=== PATIENT | female | born 1940 | race Two or more races ===

== ENCOUNTER → 2024-10-29 | Outpatient (CLI) | payer MEDICARE, SELFPAY ==
--- NOTE | 2024-10-29 | XR_ITS ---
EXAMINATION: Ankle, left 2 views Technique: Ankle AP, lateral 2 views Date and time of exam: October 29, 2024 1321 hours INDICATIONS: Twisting injury to the ankle 7 days ago, ankle pain. FINDINGS: Severe osteopenia No acute fracture No foreign body IMPRESSION: No acute fracture
== END | disposition home or self-care (01) ==
PROVIDERS: PCP Nurse Practitioner Family; Referring Provider Nurse Practitioner Family; Visit Provider Nurse Practitioner Family
DX: S99.912A Unspecified injury of left ankle, initial encounter (principal); X50.1XXA Overexertion from prolonged static or awkward postures, initial encounter
CPT/HCPCS: 73600

== ENCOUNTER → 2025-04-15 | Outpatient (CLI) | payer MEDICARE, SELFPAY ==
[2025-04-15 08:42] LABS: Basophils % (Auto) 0 % (0-2.5); Eosinophils % (Auto) 1 % (0-10); Hematocrit 33.5 % (36.0-46.0); Hemoglobin 10.5 g/dL (12.0-16.0); Immature Granulocytes % (Auto) 2 % (0-0); Immature Granulocytes Auto 0.17 Thou/mm3 (0.00-0.00); Lymphocytes # (Auto) 3.5 Thou/mm3 (1.0-4.8); Lymphocytes % (Auto) 39 % (10-50); Mean Corpuscular HGB Conc 31.3 g/dl (31.0-37.0); Mean Corpuscular Hemoglobin 31.2 pg (25.0-35.0); Mean Corpuscular Volume 99 fL (80-100); Monocytes # (Auto) 0.6 Thou/mm3 (0.0-0.8); Monocytes % (Auto) 7 % (0-12); Neutrophils # (Auto) 4.6 Thou/mm3 (1.8-7.7); Neutrophils % (Auto) 51 % (37-80); Nucleated Red Blood Cell % 0 /100 WBC (0); Platelet Count 176 Thou/mm3 (140-440); RDW Standard Deviation 47.8 fL (36.4-46.3); Red Blood Count 3.37 Miln/mm3 (4.00-5.20); White Blood Count 8.9 Thou/mm3 (3.6-11.0)
[2025-04-15 08:46] LABS: Glucose Estimated Average 120 mg/dL (80-131); Hemoglobin A1C 5.8 % Hgb (4.8-6.0)
[2025-04-15 09:06] LABS: Ferritin 58 ng/mL (7.3-270.7); Iron 43 mcg/dL (50-170); Total Iron Binding Capacity 277 mcg/dL (250-425)
[2025-04-15 09:08] LABS: Alanine Aminotransferase 17 U/L (10-49); Albumin, Serum 3.8 gm/dL (3.4-4.8); Albumin/Globulin Ratio 1.8 (1.2-2.2); Alkaline Phosphatase 105 U/L (46-116); Anion Gap 8 (7-16); Aspartate Amino Transferase 29 U/L (0-34); BUN/Creatinine Ratio 18 Ratio (12-20); Bilirubin,Total 0.5 mg/dL (0.3-1.2); Blood Urea Nitrogen 30 mg/dL (9-23); Calcium 8.3 mg/dL (8.3-10.6); Calcium (Corrected) 8.5 mg/dL (8.5-10.1); Carbon Dioxide 31.2 mMol/L (20.0-31.0); Cardiac Risk Estimate 2.8 RATIO (3.7-5.6); Chloride 106 mMol/L (98-107); Cholesterol 217 mg/dL (132-200); Creatinine (Component) 1.7 mg/dL (0.6-1.3); Folate 6.38 ng/mL (>5.38); Free T4 (Free Thyroxine) 1.42 ng/dL (0.89-1.76); Globulin 2.1 gm/dL (2.3-3.5); Glucose 97 mg/dL (74-106); HDL Cholesterol 77 mg/dL (40-60); LDL Cholesterol,Calculated 117 mg/dL (0-130); Osmolality,Calculated 294 (275-295); Potassium 4.1 mMol/L (3.4-5.1); Sodium 145 mMol/L (136-145); Thyroid Stimulating Hormone 6.84 uIU/mL (0.55-4.78); Total Protein 5.9 gm/dL (5.7-8.2); Triglycerides 114 mg/dL (30-150); Vitamin B12 > 2000 pg/mL (211-911); Vitamin D 25 Hydroxy Total 34.3 ng/mL (7.3-40.2); eGFR 30 See Note
[2025-04-15 09:36] LABS: Partial Thromboplastin Time 22.2 Seconds (22.0-36.0); Prothrombin Time 10.7 Seconds (9.0-12.2)
[2025-04-22 06:58] LABS: Direct LDL* 125 mg/dL (<100)
== END | disposition home or self-care (01) ==
LOC: COPL 07:22
PROVIDERS: PCP Nurse Practitioner Family; Referring Provider Nurse Practitioner Family; Visit Provider Nurse Practitioner Family
DX: R89.8 Other abnormal findings in specimens from other organs, systems and tissues (principal); I10 Essential (primary) hypertension; R58 Hemorrhage, not elsewhere classified; Z13.220 Encounter for screening for lipoid disorders; Z13.29 Encounter for screening for other suspected endocrine disorder; Z13.1 Encounter for screening for diabetes mellitus; R53.81 Other malaise
CPT/HCPCS: 36415; 80053; 80061; 82306; 82607; 82728; 82746; 83036; 83540; 83550; 83721; 84439; 84443; 85025; 85610; 85730